=== PATIENT | male | born 1985 | race African-American/Black ===

== ENCOUNTER 2019-11-13 21:47 | Emergency (ER) | payer OTHER ==
[~2019-11-13] VITALS: Ht 177.8 cm; Wt 104.3 kg
[~2019-11-13 21:47] MED LIST: IBUPROFEN 600600 M1 PO; NORCO 5-325 TA1 EACH PO; PROTONIX 20 MG20 M1 PO
[2019-11-13] MEDS ORDERED: TESSALON PERLE100 M1 PO (21:55)
[2019-11-13 23:03] LABS: ABSOLUTE NEUTROPHILS 3.1 thou/uL (1.4-8.2); BASOPHILS 0.7 % (0.0-2.0); EOSINOPHILS 2.7 % (0.0-3.0); HEMATOCRIT 42.8 % (42.0-52.0); HEMOGLOBIN 14.8 gm/dL (14.0-18.0); LYMPHOCYTES 30.7 % (24.0-44.0); MCH 32.4 pg (26.0-34.0); MCHC 34.5 g/dL (28.0-37.0); MCV 93.9 fL (80.0-100.0); PLATELET COUNT 159 thou/uL (150-400); POLYS 53.9 % (36.0-66.0); RBC 4.56 mil/uL (4.50-6.00); RDW 13.6 % (10.5-14.5); WBC 5.7 thou/uL (4.0-11.0)
[2019-11-13 23:11] LABS: ANION GAP 9 mmol/L (7-16); BUN 28 mg/dL (7-18); CALCIUM 8.5 mg/dL (8.5-10.1); CHLORIDE 102 mmol/L (98-107); CO2 26 mmol/L (21-32); CREATININE 1.1 mg/dL (0.7-1.3); GLUCOSE 98 mg/dL (74-106); POTASSIUM 3.5 mmol/L (3.5-5.1); SODIUM 137 mmol/L (136-145)
[2019-11-13 23:17] LABS: ALBUMIN 4.2 g/dL (3.4-5.0); DIRECT BILIRUBIN < 0.1 mg/dL (<0.1-0.2); LIPASE 311 U/L (73-393); SGOT 38 U/L (15-37); SGPT 53 U/L (30-65); TOTAL BILIRUBIN 0.3 mg/dL (<0.1-1.0); TOTAL PROTEIN 7.7 g/dL (6.4-8.2)
[2019-11-14] MEDS ORDERED: BENTYL 20 MG TA20 M1 PO (00:50)
[2019-11-14] MEDS ORDERED: NORCO 5-325 TA1 EAC1 PO (01:00)
[2019-11-14 01:05] VITALS: BP 132/81
== END 2019-11-14 01:05 | disposition home or self-care (01) ==
LOC: ER 21:47
PROVIDERS: Emergency Medicine
DX: R10.11 Right upper quadrant pain (principal); R10.12 Left upper quadrant pain